=== PATIENT | male | born 1970 | race Caucasian/White ===

== ENCOUNTER 2020-05-23 00:16 | Emergency (ER) | payer BC, OTHER ==
[2020-05-23 00:26] VITALS: BP 148/95; PULSE 78; TEMP 98.5; BMI 36.6
[2020-05-23] MEDS ORDERED: KETOROLAC TROMETHAMINE 30 MG/1 ML VIAL ONE (00:56)
[2020-05-23] MEDS ORDERED: KETOROLAC TROMETHAMINE 30 MG/1 ML VIAL IVPUSH ONE (00:56)
[2020-05-23] MEDS ORDERED: ACETAMINOPHEN INJECTION 100 ML IVPB ONE (00:57)
[2020-05-23] MEDS ORDERED: DEXAMETHASONE SOD PHOSPHATE 10 MG/1 ML VIAL IVPUSH ONE (00:57)
[2020-05-23] MEDS ORDERED: ACETAMINOPHEN 1000 MG/100 ML VIAL (NON FORMULARY) IVPB ONE (00:57)
[2020-05-23] MEDS ORDERED: DEXAMETHASONE SOD PHOSPHATE 10 MG/1 ML VIAL ONE (00:58)
[2020-05-23 01:42] LABS: BASO % 0.8 % (0-2.0); EOS % 1.7 % (0-4.5); HEMATOCRIT 44.8 % (35.4-49); HEMOGLOBIN 15.6 GM/dL (11.7-16.9); LYMPH % 37.5 % (8-40); MCH 29.2 pg (25.7-33.7); MCHC 34.7 g/dl (32.0-35.9); MEAN CELL VOLUME 84.2 fl (80-96); MEAN PLT VOLUME 8.8 fl (7.5-11.1); MONO % 8.5 % (3.8-10.2); NEUT % 51.5 % (42.8-82.8); PLATELET COUNT 255 K/MM3 (134-434); RBC 5.33 M/mm3 (4.00-5.60); RDW 13.3 % (11.9-15.9); WHITE BLOOD COUNT 7.8 K/mm3 (4.0-10.0)
[2020-05-23] MEDS ORDERED: LIDOCAINE 5% TOPICAL PATCH TP ONE (01:52)
[2020-05-23] MEDS ORDERED: LIDOCAINE 5% TOPICAL PATCH ONE (01:54)
[2020-05-23 01:55] LABS: POTASSIUM 3.8 mmol/L (3.5-5.1)
[2020-05-23 01:58] LABS: ALBUMIN 3.8 g/dl (3.4-5.0); BLOOD UREA NITROGEN 19.8 mg/dL (7-18); CALCIUM 9.4 mg/dL (8.5-10.1)
[2020-05-23 02:01] LABS: CREATININE 1.1 mg/dL (0.55-1.3)
[2020-05-23 02:03] LABS: BILIRUBIN,TOTAL 0.6 mg/dL (0.2-1)
[2020-05-23] MEDS ORDERED: LIDOCAINE PATCH REMOVAL MC SCH (22:00)
== END 2020-05-23 02:18 | disposition home or self-care (01) ==
LOC: FER 00:16
PROC: 3E033GC Introduction of Other Therapeutic Substance into Peripheral Vein, Percutaneous Approach (ICD-10-PCS; principal; 2020-05-23)
DX: E11.42 Type 2 diabetes mellitus with diabetic polyneuropathy (principal)
CPT/HCPCS: 36415; 80053; 83690; 85025; 99284-25; J0131; J1100

== ENCOUNTER 2021-04-18 14:50 | Emergency (ER) | payer SELFPAY ==
[2021-04-18 15:27] VITALS: TEMP 98.8; BMI 38.0
[2021-04-18] MEDS ORDERED: ACETAMINOPHEN 325 MG TABLET (FP) PO ONE (15:56)
[2021-04-18] MEDS ORDERED: ACETAMINOPHEN 325 MG TABLET (FP) ONE (16:00)
[2021-04-18 16:24] LABS: ALBUMIN 4.1 g/dl (3.4-5.0); BILIRUBIN,TOTAL 0.9 mg/dl (0.2-1); CALCIUM 9.6 mg/dl (8.5-10); CREATININE 0.7 mg/dl (0.55-1.3); TOT PROT 6.7 g/dl (6.4-8.2)
[2021-04-18 18:01] LABS: BASO % 0.8 % (0-2.0); HEMATOCRIT 42.9 % (35.4-49); HEMOGLOBIN 14.8 GM/dL (11.7-16.9); LYMPH % 32.6 % (8-40); MCH 28.8 pg (25.7-33.7); MCHC 34.4 g/dl (32.0-35.9); MEAN CELL VOLUME 83.5 fl (80-96); MEAN PLT VOLUME 8.5 fl (7.5-11.1); MONO % 9.6 % (3.8-10.2); PLATELET COUNT 246 10^3/uL (134-434); RBC 5.14 M/mm3 (4.00-5.60); RDW 13.2 % (11.9-15.9); WHITE BLOOD COUNT 6.9 K/mm3 (4.0-10.0)
[2021-04-18 21:02] VITALS: BP 139/91; PULSE 74
== END 2021-04-18 20:40 | disposition home or self-care (01) ==
LOC: FER 14:50
DX: S39.011A Strain of muscle, fascia and tendon of abdomen, initial encounter (principal); X50.0XXA Overexertion from strenuous movement or load, initial encounter
CPT/HCPCS: 36415; 74177-TC; 80053; 83690; 85025; 99285-25; Q9967